=== PATIENT | female | born 1995 | race Two or more races ===

== ENCOUNTER 2022-08-02 23:43 | Emergency (ER) | payer OTHER ==
[~2022-08-02] VITALS: Ht 165.1 cm; Wt 99.3 kg
[2022-08-03] MEDS ORDERED: PRENATAL TABLE1 EAC3 PO (00:03)
[2022-08-03] MEDS ORDERED: ACETAMINOPHEN650 M2 PO (05:31)
== END 2022-08-03 05:40 | disposition home or self-care (01) ==
LOC: ER 23:43
DX: O20.9 Hemorrhage in early pregnancy, unspecified (principal); Z3A.01 Less than 8 weeks gestation of pregnancy